=== PATIENT | male | born 1950 | race Caucasian/White ===

== ENCOUNTER 2017-12-29 07:18 | Outpatient (CLI) | payer OTHER ==
--- NOTE | 2017-12-29 10:13 | MRI ---
MRI RIGHT KNEE WITHOUT CONTRAST: Date: 12/29/17 HISTORY: Meniscus tear of the right knee. COMPARISON: None. FINDINGS: Medial Meniscus: There is a full thickness radial tear of the root attachment medial meniscus from the footplate with a 5.0 mm gap. There is 5.0 mm medial gutter extrusion with moderate degenerative signal within the michel dy and posterior horn of the medial meniscus. Lateral Meniscus: Mild degenerative signal at posterior root attachment without a displaced tear. ACL and PCL are intac t, as well as the MCL and LCL. Extensor Mechanism: Quadriceps tendon, patella, and patella tendon are all intact. Cartilage: Patellofemoral compartment: High grade cartilage fissuring with full thickness cartilage fissures in the medial patellar facet. Low grade chondral fraying of the medial trochlea. Medial compartment: High grade cartilage fissuring of the central weightbearing surface at the media l femoral condyle. Lateral compartment: Low grade chondral fraying of the central weightbearing surfaces. Muscles: Muscle signal and bulk normal. Soft Tissues: Nonleaking popliteal cyst. Moderate sized suprapatellar effusion. Mild prepatellar soft tissue swelling. IMPRESSION: 1. Full thickness radial tear root attachment of the medial meniscus from the footprint with 5.0 mm gap. Subsequent 4-5 mm medial gutter extrusion of the medial meniscal body. 2. 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 3. Multifocal Grade III and few foci of Grade IV chondromalacia of the medial patella facet. 4. Nonleaking popliteal cyst. POS: C
== END 2017-12-29 07:19 | disposition home or self-care (01) ==
LOC: BICMRI 07:18
PROVIDERS: ATTEND Orthopaedic Surgery
DX: Z03.89 Encounter for observation for other suspected diseases and conditions ruled out (principal); M71.21 Synovial cyst of popliteal space [Baker], right knee

== ENCOUNTER 2018-02-28 09:51 | Outpatient (CLI) | payer OTHER ==
[2018-02-28 12:07] LABS: #Eosinphils 0.1 thou/uL (0.0-0.7); #Lymphocytes 1.4 thou/uL (1.20-3.40); #Monocytes 0.8 thou/uL (0.11-0.59); #Neutrophils 6.7 thou/uL (1.40-6.50); %Basophils 0.1 % (0.0-1.0); %Eosinophils 1.4 % (0.0-10.0); %Lymphocytes 15.1 % (21.0-51.0); %Monocytes 8.7 % (0.0-10.0); %Neutrophils 74.6 % (42.0-75.0); Hemoglobin 13.5 g/dL (14.0-18.0); Mean Corpuscular HGB CONC 33.9 g/dL (32.0-36.0); Mean Corpuscular Hemoglobin 31.7 pg (27.0-31.0); Mean Corpuscular Volume 93.2 fL (78.0-98.0); Mean Platelet Volume 8.3 fL (7.4-10.4); Platelet Count 260 thou/uL (130-400); RBC Distribution Width 12.5 % (11.5-14.5); Red Blood Cell (RBC) Count 4.25 mill/uL (4.70-6.10); White Blood Cell (WBC) Count 8.9 thou/uL (4.8-10.8)
[2018-02-28 12:15] LABS: INR-International Normal Ratio 1.1; PTT 29.5 SEC (22.9-36.1); Prothrombin Time 14.4 SEC (12.0-14.7)
[2018-02-28 12:33] LABS: Anion Gap 12 mmol/L (10-20); BUN (Urea Nitrogen) 13 mg/dL (8.4-25.7); Calc. Creatinine Clearance 0 mL/min (70-130); Calcium 8.7 mg/dL (7.8-10.44); Carbon Dioxide 22 mmol/L (23-31); Chloride 110 mmol/L (98-107); Estimated GFR-MDRD Greater than 90; Glucose 92 mg/dL (80-115); Potassium 4.3 mmol/L (3.5-5.1); Sodium 140 mmol/L (136-145)
--- NOTE | 2018-03-01 21:59 | EKG ---
Test Reason : Blood Pressure : / mmHG Vent. Rate : 059 BPM Atrial Rate : 059 BPM P-R Int : 190 ms QRS Dur : 082 ms QT Int : 396 ms P-R-T Axes : 049 020 -02 degrees QTc Int : 392 ms Sinus bradycardia with Premature atrial complexes Otherwise normal ECG No previous ECGs available Confirmed by Diana NAVARRO ([id number]) on 03/01/2018 9:59:21 PM Referred By: SUMA Confirmed By:Diana NAVARRO
== END 2018-02-28 09:52 | disposition home or self-care (01) ==
LOC: LABBT 09:51
PROVIDERS: ATTEND Orthopaedic Surgery
DX: Z01.818 Encounter for other preprocedural examination (principal); S83.242A Other tear of medial meniscus, current injury, left knee, initial encounter
CPT/HCPCS: 80048; 85025; 85610; 85730; 93005; 93010

== ENCOUNTER 2018-03-01 05:49 | Day surgery (SDC) | payer OTHER ==
--- NOTE | 2018-02-28 10:02 | HP ---
HISTORY OF PRESENT ILLNESS: The patient is a 67-year-old male, who injured his right knee 5 to 6 months ago in a twisting injury after stepping into a hole. He has had persistent pain, swelling, and popping despite restriction of activities, use of knee brace, and previous cortisone injection. PAST MEDICAL HISTORY: The patient has had previous cardiac stents and takes aspirin and Plavix. He has stopped the Plavix 1 week preoperatively. He has been seen at the [facility] and cleared for surgery. He is otherwise in good health. Also, he has history of hypertension. ALLERGIES: HE HAS NO KNOWN ALLERGIES. FAMILY HISTORY: Otherwise, unremarkable. SOCIAL HISTORY: Otherwise, unremarkable. REVIEW OF SYSTEMS: Otherwise, unremarkable. PHYSICAL EXAMINATION: GENERAL: Healthy heavyset male. HEENT: Unremarkable. NECK: Supple. CHEST: Clear. HEART: Regular rate and rhythm. ABDOMEN: Soft and nontender. RECTAL: Deferred. GENITAL: Deferred. EXTREMITIES: Pertinent findings of the right knee; there is puffiness, but no definite effusion. There is tenderness over the medial joint line. Range of motion is 5 to 125 degrees. There is pain with Kathleen maneuver. There is instability. There is a right antalgic gait. Neurovascular exam is intact. There is no pain with range of motion of the right hip. IMAGING STUDIES: X-rays of the right knee taken at [facility] essentially normal. MRI scan of the right knee reveals a full-thickness medial meniscal tear at the root and degenerative changes at the medial compartment of patellofemoral joint. IMPRESSION: Internal derangement of right knee with medial meniscal tear and possible component of degenerative joint disease. PLAN: Arthroscopy of right knee with partial medial meniscectomy and/or debridement and shaving. The nature of the surgery and length of recovery and potential complications such as infection, loss of motion, incomplete relief, thromboembolic phenomenon, neurovascular injury, post traumatic degenerative arthritis, recurrent tear, need for additional treatment with orthopedic surgery have been discussed in detail. Job ID: [id number]
[2018-02-28 10:17] VITALS: BMI 34.8
[2018-03-01] MEDS ORDERED: Fentanyl 100 MCG/2 ML VIAL ONE (06:38)
[2018-03-01] MEDS ORDERED: Bupivacaine HCl 0.5%/Epinephrine 1:200,000/PF 30 ml Vial ONE (06:43)
[2018-03-01] MEDS ORDERED: CEFAZOLIN 2 GM/50 ML BAG ONE (07:16)
[2018-03-01] MEDS ORDERED: Morphine 4 MG/ML VIAL ONE (09:26)
[2018-03-01] MEDS ORDERED: HYDROcodone/Acetaminophen 5/325 mg Tablet ONE (10:17)
[2018-03-01] MEDS ORDERED: Lidocaine 1% PF 5 ML VIAL ONE (16:56)
[2018-03-01] MEDS ORDERED: Ondansetron PF 4 MG/2 ML Vial ONE (16:56)
[2018-03-01] MEDS ORDERED: Dexamethasone 20 MG/5 ML VIAL ONE (16:56)
[2018-03-01] MEDS ORDERED: PROPOFOL 200 MG/20 ML VIAL ONE (16:56)
[2018-03-01] MEDS ORDERED: ePHEDrine/0.9% NaCl/PF SYRINGE 50 mg/10 ml ONE (16:56)
--- NOTE | 2018-03-03 07:44 | OP ---
DATE OF PROCEDURE: 03/01/2018 ANESTHESIA: General. PREOPERATIVE DIAGNOSES: Medial meniscus tear and degenerative joint disease, right knee. POSTOPERATIVE DIAGNOSES: Medial meniscus tear and degenerative joint disease, right knee. PROCEDURES PERFORMED: Arthroscopy of right knee with partial medial meniscectomy and shaving of medial femoral condyle and patella. OPERATIVE FINDINGS: Examination under anesthesia revealed the need to be stable. At arthroscopy there was grade 2 and grade 3 changes in central portion of the patella with fibrillated cartilage, but no evidence of exposed bone. There were grade 2 and grade 3 changes in the weightbearing surface of the medial femoral condyle, but no evidence of exposed bone. There was some mild degeneration of the body of the medial meniscus, but no definite tears. There was a small tear at the root of the meniscus primarily on the undersurface, which was relatively small and was not unstable. ACL was intact and there are mild degenerative changes of the lateral compartment and some mild fraying of the free margin of the lateral meniscus, but the bulk of meniscus was intact and this was left alone. DESCRIPTION OF PROCEDURE: After satisfactory anesthesia was induced in supine position, the patient was placed on leg schulte and prepped and draped in a routine manner. The right leg was elevated and exsanguinated with an Esmarch bandage with tourniquet inflated to 300 mmHg. Zoey arthroscope was introduced into the standard anterolateral portal and probed through the anteromedial portal and Inflow and outflow accomplished using a Mindflash arthroscopy pump. Arthroscopy was carried out and the above findings were noted. All findings were documented with the video printer and hard copies were made. Medial femoral condyle was debrided with a motorized shaver. Medial meniscal root tear was debrided with a motorized shaver. The patellar surface was debrided with a motorized shaver. The scope was then introduced into the anteromedial portal. All compartments were visualized and no additional pathology found. The knee was copiously irrigated through the scope and all instruments were then withdrawn. A 20 mL of 0.5% Marcaine with epinephrine was instilled into the knee joint and additional 10 mL was injected about the portal sites. Portal sites were closed with 3-0 nylon and a sterile bulky compressive dressing was applied. The tourniquet was deflated for 30 minutes. Foot promptly pinked up, and the patient was awakened and taken to the recovery room in stable condition. There were no apparent intraoperative complications. Estimated blood loss was negligible. The patient will be discharged home in satisfactory condition with some ice and elevation. Given written care instructions and starting home exercise program with Physical Therapy Department and use of walker or crutches. He was given prescription for Brady 7.5 for pains, 40 tablets. He will be rechecked in my office in 10 to 14 days, or sooner if there are any problems prior to that time. Job ID: [id number] MTDD
== END 2018-03-01 11:41 | disposition home or self-care (01) ==
LOC: SDC 05:49
PROVIDERS: ATTEND Orthopaedic Surgery
PROC: 0SBC4ZZ Excision of Right Knee Joint, Percutaneous Endoscopic Approach (ICD-10-PCS; principal; 2018-03-01)
DX: S83.241A Other tear of medial meniscus, current injury, right knee, initial encounter (principal); M17.11 Unilateral primary osteoarthritis, right knee; I10 Essential (primary) hypertension; Z79.02 Long term (current) use of antithrombotics/antiplatelets; Z79.82 Long term (current) use of aspirin; Z79.899 Other long term (current) drug therapy; Z91.041 Radiographic dye allergy status; Z95.5 Presence of coronary angioplasty implant and graft; W18.42XA Slipping, tripping and stumbling without falling due to stepping into hole or opening, initial encounter
CPT/HCPCS: 96374; G8978-GP-CI; G8979-GP-CI; G8980-GP-CI; J0670; J1100; J2001; J2270; J2405; J2704; J3010

== ENCOUNTER 2018-10-23 08:55 | Outpatient (CLI) | payer OTHER ==
--- NOTE | 2018-10-23 11:40 | MRI ---
MRI LUMBAR SPINE WITHOUT CONTRAST: Date: 10/23/18 HISTORY: 68-year-old male with low back pain radiating down bilateral legs. Intervertebral disc degeneration, lumbar. FINDINGS: The vertebral body heights and marrow signal are maintained. Multilevel disc desiccation is seen. Ost eophyte formation is noted as well. There are bilateral facet hypertrophic changes at multiple levels in the lumbar spine. Bulging discs are noted at multiple levels. These result in moderate central ca nal stenosis at L3-4 level. Ligamentum flavum and hypertrophic changes are most prominent at L3-4 lev el. There is mild left-sided lateral recess stenosis at L4-5 level. The paraspinal musculature is nor mal. Incidental note is made of left renal cysts. No significant neural foraminal stenosis is seen. IMPRESSION: Lumbar spondylosis with stenotic changes as described above. POS: [facility]
== END 2018-10-23 08:56 | disposition home or self-care (01) ==
LOC: BICMRI 08:55
DX: M51.36 Other intervertebral disc degeneration, lumbar region (principal); M47.816 Spondylosis without myelopathy or radiculopathy, lumbar region
CPT/HCPCS: 72148

== ENCOUNTER 2019-01-11 06:38 | Outpatient (CLI) | payer OTHER ==
--- NOTE | 2019-01-11 07:43 | ULT ---
BILATERAL CAROTID DUPLEX ULTRASOUND: HISTORY: Atherosclerotic vascular disease. Carotid stenosis. Right endarterectomy. TECHNIQUE: Grayscale, color-flow and spectral Doppler ultrasound imaging of the extracranial carotid artery syst ems was performed bilaterally. FINDINGS: There is plaque formation on both sides. The peak systolic velocity in the right ICA measures 91 cm/s with an end-diastolic velocity of 13 cm/ s and a systolic ratio of 1.33. The peak systolic velocity in the left ICA measures 140 cm/s with an end-diastolic velocity of 52 cm/s and a systolic ratio of 1.54. Flow in both vertebral arteries remains antegrade. IMPRESSION: Moderate (50-69%) stenosis of the left ICA
== END 2019-01-11 06:39 | disposition home or self-care (01) ==
LOC: ULT 06:38
DX: I65.23 Occlusion and stenosis of bilateral carotid arteries (principal)
CPT/HCPCS: 93880

== ENCOUNTER 2019-08-29 08:56 | Outpatient (CLI) | payer OTHER ==
--- NOTE | 2019-08-29 11:42 | MRI ---
MRI CERVICAL SPINE WITHOUT CONTRAST: Date: 08/29/2019 INDICATION: Cervical radiculopathy. FINDINGS: Cervical vertebra maintain normal height and alignment. Disc spaces are preserved. Degenerative carrillo es are noted at C5-6 and C6-7 with anterior osteophytes. Degenerative disc and end plate changes at C 6-7 with mild loss of disc space at this level. Vertebral body signal is otherwise normally preserved. No significant disc bulge or spondylosis at C2-3. At C3-4, there is minimal disc bulge and spondylosis. Minimal effacement of the anterior subarachnoid space. No central canal or foraminal stenosis. C4-5: Mild disc bulge centrally effaces the anterior subarachnoid space. No cord impingement or cent ral canal stenosis. No foraminal stenosis. C5-6: Posterior disc bulge and spondylosis impinge on and mildly flatten the anterior cord. No evide nce of significant foraminal stenosis. C6-7: Posterior disc bulge and spondylytic change abut the anterior cord. No foraminal stenosis. Cervical cord signal is preserved. IMPRESSION: Posterior disc bulge and spondylosis noted at C5-6 and C6-7. Mild cord impingement at both of these l evels and degenerative disc changes at these levels as described above. POS: AGW
== END 2019-08-29 08:57 | disposition home or self-care (01) ==
LOC: BICMRI 08:56
PROVIDERS: ATTEND Specialist
DX: M47.22 Other spondylosis with radiculopathy, cervical region (principal)
CPT/HCPCS: 72141

== ENCOUNTER 2019-11-30 06:59 | Outpatient (CLI) | payer OTHER ==
[2019-11-30 10:50] LABS: Hemoglobin 14.9 g/dL (14.0-18.0); Mean Corpuscular Hemoglobin 30.9 pg (27.0-31.0); Mean Corpuscular Volume 93.6 fL (78.0-98.0); Mean Platelet Volume 8.4 fL (7.4-10.4); Platelet Count 295 thou/uL (130-400); RBC Distribution Width 12.7 % (11.5-14.5); Red Blood Cell (RBC) Count 4.83 mill/uL (4.70-6.10); White Blood Cell (WBC) Count 7.2 thou/uL (4.8-10.8)
[2019-11-30 11:08] LABS: Anion Gap 13 mmol/L (10-20); BUN (Urea Nitrogen) 19 mg/dL (8.4-25.7); Calc. Creatinine Clearance 0 mL/min (70-130); Calcium 9.3 mg/dL (7.8-10.44); Carbon Dioxide 26 mmol/L (23-31); Chloride 102 mmol/L (98-107); Estimated GFR-MDRD 80; Glucose 106 mg/dL (80-115); Potassium 4.3 mmol/L (3.5-5.1); Sodium 137 mmol/L (136-145)
[2019-11-30 12:14] LABS: INR-International Normal Ratio 0.9; Prothrombin Time 12.2 sec (12.0-14.7)
[2019-11-30 12:15] LABS: PTT 32.6 sec (22.9-36.1)
[2019-11-30 16:40] LABS: SARS-CoV-2 MS2 Positive; SARS-CoV-2 N Gene Negative; SARS-CoV-2 S Gene Negative; SARS-CoV-2 by NAA Not Detected (NotDetected); SARS-CoV-2 orf1ab Negative
--- NOTE | 2019-12-05 20:12 | EKG ---
Test Reason : Blood Pressure : / mmHG Vent. Rate : 076 BPM Atrial Rate : 076 BPM P-R Int : 174 ms QRS Dur : 082 ms QT Int : 370 ms P-R-T Axes : 074 028 042 degrees QTc Int : 416 ms Normal sinus rhythm Normal ECG No previous ECGs available Confirmed by PHIL COURTNEY, DR. Coon ([id number]) on 12/05/2019 8:11:51 PM Referred By: FRIEDA Confirmed By:DR. Shaggy VILLARREAL MD
== END 2019-11-30 07:00 | disposition home or self-care (01) ==
LOC: LABBT 06:59
PROVIDERS: ATTEND Surgery
DX: Z01.818 Encounter for other preprocedural examination (principal); Z20.828 Contact with and (suspected) exposure to other viral communicable diseases; M48.02 Spinal stenosis, cervical region; M50.10 Cervical disc disorder with radiculopathy, unspecified cervical region
CPT/HCPCS: 80048; 85027; 85610; 85730; 87635; 93005; 93010; U0003

== ENCOUNTER 2019-12-04 08:00 | Day surgery (SDC) | payer OTHER ==
[2019-11-30 10:33] VITALS: BMI 32.8
[2019-12-04] MEDS ORDERED: EPHEDRINE 25 MG/5 ML SYRINGE ONE (09:51)
[2019-12-04] MEDS ORDERED: PROPOFOL 200 MG/20 ML VIAL ONE (09:51)
[2019-12-04] MEDS ORDERED: Lidocaine 1% PF 5 ML VIAL ONE (09:51)
[2019-12-04] MEDS ORDERED: Dexamethasone 20 MG/5 ML VIAL ONE (09:51)
[2019-12-04] MEDS ORDERED: Ondansetron PF 4 MG/2 ML Vial ONE (09:51)
[2019-12-04] MEDS ORDERED: Rocuronium Bromide 10 MG/ML (10ML VIAL) ONE (09:51)
[2019-12-04] MEDS ORDERED: Thrombin 5000 UNITS/5 ML VIAL ONE (10:14)
[2019-12-04] MEDS ORDERED: Fentanyl 100 MCG/2 ML VIAL ONE ×4 (10:20→13:44)
[2019-12-04] MEDS ORDERED: Dexmedetomidine 200 MCG/2 ML VIAL ONE (10:21)
[2019-12-04] MEDS ORDERED: SUGAMMADEX SODIUM 200 MG/2 ML VIAL ONE (12:28)
[2019-12-04] MEDS ORDERED: Bisacodyl 10 MG SUPP PR PRN (13:01)
[2019-12-04] MEDS ORDERED: tiZANidine HCl 4 MG TAB PO PRN (13:01)
[2019-12-04] MEDS ORDERED: HYDROcodone/Acetaminophen 7.5/325 mg Tablet PO PRN (13:01)
[2019-12-04] MEDS ORDERED: diphenhydrAMINE 25 MG CAP PO PRN (13:01)
[2019-12-04] MEDS ORDERED: Mag-Al 1200 mg/1200 mg/30 ML UDCUP PO PRN (13:01)
[2019-12-04] MEDS ORDERED: Acetaminophen 325 MG TAB PO PRN (13:01)
[2019-12-04] MEDS ORDERED: Milk Of Magnesia 30 ML UDCUP PO PRN (13:01)
[2019-12-04] MEDS ORDERED: Morphine 2 MG/ML VIAL SLOW IVP PRN (13:01)
[2019-12-04] MEDS ORDERED: Acetaminophen/Codeine 30-300mg Tablet PO PRN (13:01)
[2019-12-04] MEDS ORDERED: Ondansetron PF 4 MG/2 ML Vial IVP PRN (13:01)
[2019-12-04] MEDS ORDERED: Promethazine HCl 25 MG/ML VIAL SLOW IVP PRN (13:37)
[2019-12-04] MEDS ORDERED: Ondansetron HCl/PF 4 MG/2 ML Vial IVP PRN (13:37)
[2019-12-04] MEDS ORDERED: Promethazine HCl 25 MG/ML VIAL IM PRN (13:37)
[2019-12-04] MEDS ORDERED: Cepastat Lozenges 1 LOZ PO PRN (13:47)
[2019-12-04] MEDS ORDERED: Chloraseptic Spray 180 ml Bottle PO PRN (13:48)
[2019-12-04] MEDS: Ketorolac Tromethamine 30 MG/ML VIAL IVP SCH ×2 (18:08→23:33)
[2019-12-04] MEDS: CEFAZOLIN 2 GM in Premix Bag 1 BAG IVPB SCH (18:08)
[2019-12-04] MEDS: Sodium Chloride 0.9% 1,000 ML IV SCH (18:09)
[2019-12-04] MEDS: traMADol HCl 50 MG TAB PO PRN ×2 (18:10→23:32)
[2019-12-05] MEDS: CEFAZOLIN 2 GM in Premix Bag 1 BAG IVPB SCH ×2 (02:21→08:54)
[2019-12-05] MEDS: Sodium Chloride 0.9% 1,000 ML IV SCH (02:24)
[2019-12-05] MEDS: Ketorolac Tromethamine 30 MG/ML VIAL IVP SCH ×2 (05:20→11:30)
[2019-12-05] MEDS ORDERED: Losartan/Hydrochlorothiazide 100 mg/25 mg Tablet PO SCH (09:00)
[2019-12-05] MEDS ORDERED: Amlodipine 10 MG TAB PO SCH (09:00)
--- NOTE | 2019-12-05 09:30 | PRG ---
DATE OF SERVICE: 12/05/2019 Mr. Colón is doing very well, postoperative day one with resolution of his arm and leg pain and even improvement in his hand intrinsics. I am very pleased with how he is doing. I went over do's and don'ts in the postoperative period. He will be discharged. Job ID: [id number]
[2019-12-05 11:26] VITALS: BP 122/68; TEMP 97.9
--- NOTE | 2019-12-05 11:27 | OP ---
DATE OF PROCEDURE: 12/04/2019 RETAIL AIDE: KIA Us PREPROCEDURE DIAGNOSIS: Multilevel cervical stenosis with neck, arm and leg pain. POSTPROCEDURE DIAGNOSIS: Multilevel cervical stenosis with neck, arm and leg pain. PROCEDURE PERFORMED: 1. C5-C6, C6-C7 diskectomies for decompression of spinal cord and nerve roots with placement of interbody spacer, separate from plate, C5-C6, C6-C7, packed with local bone autograft obtained with same incision, allograft for arthrodesis. 2. Anterior cervical plate and screw fixation C5, C6, C7. 3. Use of operative microscope for microdissection. DESCRIPTION OF PROCEDURE: After informed consent was obtained from the patient, the patient brought to the OR. Proper patient, pause, and identification were carried out. He was placed under excellent endotracheal anesthesia and positioned supine on the OR table. All appropriate points were padded. We identified the right anterior oblique lucy to allow for approach to the C5, C6, C7 segments. This region was sterilely cleansed prepared and draped. Proper patient, pause, and identification were carried out. The area was then sterilely cleansed, prepared, and draped. Proper patient, pause, and identification were carried out. We then made a small incision. We proceeded lateral to the tracheoesophageal bundle medial to the right carotid sheath. We identified the prevertebral layer of deep cervical fascia and this was dissected. Retractors were placed. Localization confirmed our area of interest. We then performed distraction at C5-C6 and diskectomy was performed at that segment. We utilized microscope for microdissection. Once we decompressed the spinal cord and the C6 nerve roots the endplates were prepared and interbody spacer packed with local bone autograft obtained with same incision. Allograft was placed to initiate arthrodesis. We then released the distraction and focus at the C6-C7 segment and a diskectomy was performed at C6-C7 which allowed for decompression of the spinal cord nerve roots. The endplates were then prepared and interbody spacer was then placed at C5, C6, C7 and we obtained excellent decompression of spinal cord and C7 nerve roots. The endplates were prepared. Interbody spacer packed with local bone autograft obtained with same incision. Allograft was then placed and copious irrigation then occurred throughout maximizing hemostasis. The microscope was then removed and anterior cervical plate and screw fixation C5-C6, C6-C7 then occurred with final tightening. Copious irrigation occurred throughout maximizing hemostasis. The wound was then closed in anatomic layers following placement of a drain. The patient monitored for anesthesia. Job ID: [id number]
== END 2019-12-05 12:20 | disposition home or self-care (01) ==
LOC: SDC 08:00 → SURG B 13:00 → SDC 12-05 12:20
PROVIDERS: ATTEND Surgery
PROC: 0RG20A0 Fusion of 2 or more Cervical Vertebral Joints with Interbody Fusion Device, Anterior Approach, Anterior Column, Open Approach (ICD-10-PCS; principal; 2019-12-04)
PROC: 0RT30ZZ Resection of Cervical Vertebral Disc, Open Approach (ICD-10-PCS; principal; 2019-12-04)
PROC: 0RG2070 Fusion of 2 or more Cervical Vertebral Joints with Autologous Tissue Substitute, Anterior Approach, Anterior Column, Open Approach (ICD-10-PCS; principal; 2019-12-04)
DX: M48.02 Spinal stenosis, cervical region (principal); M50.10 Cervical disc disorder with radiculopathy, unspecified cervical region; M48.061 Spinal stenosis, lumbar region without neurogenic claudication; M54.16 Radiculopathy, lumbar region; Z79.82 Long term (current) use of aspirin; Z79.899 Other long term (current) drug therapy; Z95.5 Presence of coronary angioplasty implant and graft
CPT/HCPCS: 76000; C1713; C1776; J0690; J1100; J1885; J2405; J2704; J3010

== ENCOUNTER 2020-01-14 10:41 | Outpatient (CLI) | payer OTHER ==
--- NOTE | 2020-01-14 11:51 | RAD ---
CERVICAL SPINE 4 VIEWS: Date: 01/14/2020 HISTORY: Cervical radiculopathy. FINDINGS: Postop changes are noted. Anterior plate and screws transfix C5, C6, and C7 with interbody implants. The vertebral bodies maintain height and alignment. The other disc spaces are preserved. Very mild de generative change. IMPRESSION: Postop anterior fusion procedure with anterior plate and screws at C5, C6, and C7. Alignment is prese rved. POS: AH
== END 2020-01-14 10:42 | disposition home or self-care (01) ==
LOC: BICRAD 10:41
PROVIDERS: ATTEND Surgery
DX: M50.10 Cervical disc disorder with radiculopathy, unspecified cervical region (principal); M48.02 Spinal stenosis, cervical region; Z98.1 Arthrodesis status
CPT/HCPCS: 72040

== ENCOUNTER 2020-08-21 11:00 | Inpatient (IN) | payer OTHER ==
[2020-09-25 15:32] VITALS: BMI 32.8
[2020-09-30] MEDS ORDERED: Tranexamic Acid 1,000 MG/10 ML VIAL ONE (05:59)
[2020-09-30] MEDS ORDERED: Sodium Chloride 0.9% 100 ML ONE (06:00)
[2020-09-30] MEDS ORDERED: Vancomycin 1.5 GRAM/300 ML BAG 1.5 GM in Premix Bag 1 BAG IVPB SCH (06:15)
[2020-09-30] MEDS ORDERED: Fentanyl 100 MCG/2 ML VIAL ONE ×2 (06:26→07:06)
[2020-09-30] MEDS ORDERED: Midazolam HCl 2 mg/2 ml Vial ONE (06:26)
[2020-09-30] MEDS ORDERED: Zolpidem Tartrate 5 MG TAB PO PRN ×2 (07:00→07:06)
[2020-09-30] MEDS ORDERED: HYDROcodone/Acetaminophen 10/325 mg Tablet PO PRN (07:00)
[2020-09-30] MEDS ORDERED: Ondansetron PF 4 MG/2 ML Vial IVP PRN ×2 (07:00→07:06)
[2020-09-30] MEDS ORDERED: traMADol HCl 50 MG TAB PO PRN ×2 (07:00)
[2020-09-30] MEDS ORDERED: Ropivacaine 0.2% 550 ML 550 ML NERVE BLCK SCH (07:00)
[2020-09-30] MEDS ORDERED: Promethazine HCl 25 MG/ML VIAL IM PRN ×3 (07:00→09:09)
[2020-09-30] MEDS ORDERED: Fentanyl 100 MCG/2 ML VIAL SLOW IVP PRN (07:01)
[2020-09-30] MEDS ORDERED: Acetaminophen 325 MG TAB PO PRN (07:06)
[2020-09-30] MEDS ORDERED: diphenhydrAMINE 25 MG CAP PO PRN (07:06)
[2020-09-30] MEDS ORDERED: PROPOFOL 200 MG/20 ML VIAL ONE (07:12)
[2020-09-30] MEDS ORDERED: Ropivacaine 2% HCl/PF (20 MG/10 ML VIAL) ONE (07:12)
[2020-09-30] MEDS ORDERED: Bupivacaine HCl 0.5%/Epinephrine 1:200,000/PF 30 ml Vial ONE (07:12)
[2020-09-30] MEDS ORDERED: Ondansetron PF 4 MG/2 ML Vial ONE ×2 (07:12→09:15)
[2020-09-30] MEDS ORDERED: Dexamethasone 20 MG/5 ML VIAL ONE (07:12)
[2020-09-30] MEDS ORDERED: Lidocaine 1% PF 5 ML VIAL ONE (07:12)
[2020-09-30] MEDS ORDERED: ePHEDrine Sulfate 50 MG/10 ML VIAL ONE (07:12)
[2020-09-30] MEDS ORDERED: PACU-Morphine 4MG/ML VIAL SLOW IVP PRN (09:09)
[2020-09-30] MEDS ORDERED: Promethazine HCl 25 MG/ML VIAL IVPB PRN (09:09)
[2020-09-30] MEDS ORDERED: Ondansetron HCl/PF 4 MG/2 ML Vial IVP PRN (09:09)
[2020-09-30] MEDS ORDERED: HYDROmorphone 2 MG/ML VIAL SLOW IVP PRN (09:09)
[2020-09-30] MEDS ORDERED: Promethazine HCl 25 MG/ML VIAL ONE (09:56)
[2020-09-30] MEDS: Sodium Chloride 0.9% 1,000 ML IV SCH ×2 (10:56→17:20)
[2020-09-30] MEDS: Amlodipine 10 MG TAB PO SCH (10:57)
[2020-09-30] MEDS: Aspirin 81 mg Enteric Coated Tablet PO SCH ×2 (10:57→20:33)
[2020-09-30] MEDS: Losartan/Hydrochlorothiazide 100 mg/25 mg Tablet PO SCH (10:57)
[2020-09-30] MEDS: Ketorolac Tromethamine 30 MG/ML VIAL IVP SCH ×2 (11:39→17:21)
[2020-09-30] MEDS: CEFAZOLIN 2 GM in Premix Bag 1 BAG IVPB SCH ×2 (13:04→22:07)
[2020-10-01] MEDS: Ketorolac Tromethamine 30 MG/ML VIAL IVP SCH ×5 (01:21→23:35)
[2020-10-01] MEDS: Sodium Chloride 0.9% 1,000 ML IV SCH ×3 (03:31→23:33)
[2020-10-01 05:56] LABS: Hemoglobin 12.4 g/dL (14.0-18.0); Mean Corpuscular HGB CONC 33.4 g/dL (32.0-36.0); Mean Corpuscular Hemoglobin 31.2 pg (27.0-31.0); Mean Corpuscular Volume 93.3 fL (78.0-98.0); Platelet Count 257 thou/uL (130-400); RBC Distribution Width 12.5 % (11.5-14.5); Red Blood Cell (RBC) Count 3.97 mill/uL (4.70-6.10); White Blood Cell (WBC) Count 13.9 thou/uL (4.8-10.8)
[2020-10-01] MEDS: Aspirin 81 mg Enteric Coated Tablet PO SCH ×2 (10:30→20:50)
[2020-10-01] MEDS: Multivitamin W/ Minerals 1 TAB PO SCH (10:30)
[2020-10-01] MEDS: Losartan/Hydrochlorothiazide 100 mg/25 mg Tablet PO SCH (10:30)
[2020-10-01] MEDS: Senokot S 8.6-50 MG TAB PO SCH ×2 (10:30→20:50)
[2020-10-01] MEDS: Amlodipine 10 MG TAB PO SCH (10:30)
[2020-10-01] MEDS: Ferrous Gluconate 324 MG TAB PO SCH ×2 (10:31→17:27)
[2020-10-01] MEDS: HYDROcodone/Acetaminophen 10/325 mg Tablet PO PRN ×3 (12:41→22:53)
[2020-10-02] MEDS: Ketorolac Tromethamine 30 MG/ML VIAL IVP SCH (06:07)
[2020-10-02] MEDS: HYDROcodone/Acetaminophen 10/325 mg Tablet PO PRN ×2 (06:12→10:48)
[2020-10-02] MEDS: Ferrous Gluconate 324 MG TAB PO SCH (09:09)
[2020-10-02] MEDS: Multivitamin W/ Minerals 1 TAB PO SCH (09:09)
[2020-10-02] MEDS: Losartan/Hydrochlorothiazide 100 mg/25 mg Tablet PO SCH (09:14)
[2020-10-02] MEDS: Aspirin 81 mg Enteric Coated Tablet PO SCH (09:14)
[2020-10-02] MEDS: Senokot S 8.6-50 MG TAB PO SCH (09:15)
[2020-10-02] MEDS: Amlodipine 10 MG TAB PO SCH (09:15)
[2020-10-02] MEDS: Sodium Chloride 0.9% 1,000 ML IV SCH (09:20)
[2020-10-02 11:56] VITALS: BP 130/67; TEMP 97.9
== END 2020-10-02 11:50 | disposition home or self-care (01) | DRG 470 ==
LOC: SURG A 09-30 05:38 → SJJU 09-30 10:30 → EDSTATUS 09-30 11:00
PROVIDERS: ADMIT Orthopaedic Surgery; ATTEND Orthopaedic Surgery
PROC: 0SRD0J9 Replacement of Left Knee Joint with Synthetic Substitute, Cemented, Open Approach (ICD-10-PCS; principal; 2020-09-30)
PROC: 8E0YXBZ Computer Assisted Procedure of Lower Extremity (ICD-10-PCS; 2020-09-30)
DX: M17.12 Unilateral primary osteoarthritis, left knee (principal); Z20.822 Contact with and (suspected) exposure to COVID-19; I10 Essential (primary) hypertension; I25.10 Atherosclerotic heart disease of native coronary artery without angina pectoris; E66.9 Obesity, unspecified; Z79.899 Other long term (current) drug therapy; Z68.32 Body mass index [BMI] 32.0-32.9, adult
CPT/HCPCS: 36415; 85027; A4306; C1713; C1776; J0690; J1100; J1885; J2250; J2405; J2550; J2704; J2795; J3010; J3490

== ENCOUNTER 2020-09-25 10:42 | Outpatient (CLI) | payer OTHER ==
[2020-09-25 14:27] LABS: #Eosinphils 0.1 10x3/uL (0.0-0.5); #Monocytes 0.6 10x3/uL (0.0-1.1); #Neutrophils 5.5 10x3/uL (1.5-8.4); %Basophils 0.4 % (0.0-2.0); %Eosinophils 1.3 % (0.0-6.0); %Lymphocytes 20.9 % (18.0-47.0); %Monocytes 8.1 % (0.0-10.0); %Neutrophils 68.9 % (40.0-75.0); Mean Corpuscular HGB CONC 32.3 g/dL (32.0-36.0); Mean Corpuscular Hemoglobin 29.6 pg (27.0-33.0); Mean Corpuscular Volume 91.5 fl (81.2-95.1); Mean Platelet Volume 10.6 fl (7.4-10.4); Platelet Count 305 10x3/uL (150-450); RBC Distribution Width 12.9 % (11.5-14.5); Red Blood Cell (RBC) Count 4.73 10x6/uL (4.32-5.72); White Blood Cell (WBC) Count 7.9 10x3/uL (3.5-10.5)
[2020-09-25 14:30] LABS: Prothrombin Time 10.4 sec (9.5-12.1)
[2020-09-25 14:37] LABS: Bilirubin Neg (Negative); Blood, Urine Negative (Negative); Clarity Clear (Clear); Glucose, Urine (Dipstick) Normal (Negative); Ketone, Urine Negative (Negative); Leukocyte Negative (Negative); Nitrite Negative (Negative); Protein, Urine (Dipstick) Negative (Neg-Trace); Urobilinogen Normal mg/dL (Less than 2); pH, Urine 6.5 (5.0-9.0)
[2020-09-25 14:46] LABS: Anion Gap 15 mmol/L (10-20); BUN (Urea Nitrogen) 17 mg/dL (8.4-25.7); Calc. Creatinine Clearance 0 mL/min (70-130); Calcium 9.6 mg/dL (7.8-10.44); Carbon Dioxide 25 mmol/L (23-31); Chloride 103 mmol/L (98-107); Glucose 113 mg/dL (80-115); Sodium 139 mmol/L (136-145)
[2020-09-25 14:54] LABS: Bacteria/HPF None Seen HPF (None Seen); RBC/HPF 0-3 HPF (0-3); Squamous Epithelial 0-3 HPF (0-3); WBC/HPF 0-3 HPF (0-3)
[2020-09-25 22:24] LABS: SARS-CoV-2 PCR by NAA Not Detected (NotDetected)
== END 2020-09-25 10:43 | disposition home or self-care (01) ==
LOC: LABBT 10:42
PROVIDERS: ATTEND Orthopaedic Surgery
DX: Z01.818 Encounter for other preprocedural examination (principal); M17.12 Unilateral primary osteoarthritis, left knee; Z20.822 Contact with and (suspected) exposure to COVID-19
CPT/HCPCS: 80048; 81001; 85025; 85610; 87081; 93005; 93010; U0003; U0005

== ENCOUNTER 2022-03-23 07:48 | Outpatient (CLI) | payer OTHER | END 2022-03-23 07:49 | disposition home or self-care (01) | LOC: TBSIIMAG 07:48 | PROVIDERS: ATTEND Psychiatry & Neurology Neurology | DX: M47.22 Other spondylosis with radiculopathy, cervical region (principal); M47.23 Other spondylosis with radiculopathy, cervicothoracic region; Z98.890 Other specified postprocedural states | CPT/HCPCS: 72141 ==

== ENCOUNTER 2022-04-05 15:04 | Outpatient (CLI) | payer OTHER | END 2022-04-05 15:05 | disposition home or self-care (01) | LOC: BICULT 15:04 | PROVIDERS: ATTEND Orthopaedic Surgery | DX: R22.42 Localized swelling, mass and lump, left lower limb (principal); Z96.652 Presence of left artificial knee joint | CPT/HCPCS: 93923 ==

== ENCOUNTER 2022-05-07 08:44 | Outpatient (CLI) | payer OTHER | END 2022-05-07 08:45 | disposition home or self-care (01) | LOC: TBSIIMAG 08:44 | PROVIDERS: ATTEND Orthopaedic Surgery Hand Surgery | DX: M75.111 Incomplete rotator cuff tear or rupture of right shoulder, not specified as traumatic (principal); M19.011 Primary osteoarthritis, right shoulder; M75.81 Other shoulder lesions, right shoulder ==

== ENCOUNTER 2022-07-21 12:17 | Outpatient (CLI) | payer OTHER | END 2022-07-21 12:18 | disposition home or self-care (01) | LOC: TBSIIMAG 12:17 | PROVIDERS: ATTEND Nurse Practitioner Family | DX: M54.14 Radiculopathy, thoracic region (principal) | CPT/HCPCS: 72146 ==

== ENCOUNTER 2023-03-16 08:30 | Outpatient (CLI) | payer OTHER ==
[2023-03-16 09:21] LABS: #Eosinphils 0.2 10x3/uL (0.0-0.5); #Monocytes 0.6 10x3/uL (0.0-1.1); #Neutrophils 3.9 10x3/uL (1.5-8.4); %Basophils 0.5 % (0.0-2.0); %Eosinophils 2.3 % (0.0-6.0); %Lymphocytes 28.3 % (18.0-47.0); %Monocytes 9.3 % (0.0-10.0); %Neutrophils 59.3 % (40.0-75.0); Hematocrit 43.2 % (38.8-50.0); Hemoglobin 14.5 g/dL (13.5-17.5); Mean Corpuscular HGB CONC 33.6 g/dL (32.0-36.0); Mean Corpuscular Hemoglobin 30.5 pg (27.0-33.0); Mean Corpuscular Volume 90.8 fl (81.2-95.1); Mean Platelet Volume 10.1 fl (7.4-10.4); Platelet Count 303 10x3/uL (150-450); RBC Distribution Width 13.2 % (11.5-14.5); Red Blood Cell (RBC) Count 4.76 10x6/uL (4.32-5.72); White Blood Cell (WBC) Count 6.6 10x3/uL (3.5-10.5)
== END 2023-03-16 08:31 | disposition home or self-care (01) ==
LOC: LABBT 08:30
PROVIDERS: ATTEND Orthopaedic Surgery Hand Surgery
DX: Z01.818 Encounter for other preprocedural examination (principal); G56.01 Carpal tunnel syndrome, right upper limb; G56.21 Lesion of ulnar nerve, right upper limb
CPT/HCPCS: 85025; 93005; 93010

== ENCOUNTER 2023-03-18 05:34 | Day surgery (SDC) | payer OTHER ==
[2023-03-16 08:51] VITALS: BMI 33.5
[2023-03-18] MEDS ORDERED: PROPOFOL 20 ML ONE (06:30)
[2023-03-18] MEDS ORDERED: fentaNYL PF 100 MCG/2 ML SYRINGE ONE (06:30)
[2023-03-18] MEDS ORDERED: Ondansetron PF 4 MG/2 ML Vial ONE (06:32)
[2023-03-18] MEDS ORDERED: Dexamethasone 4 mg/ml Vial ONE (06:32)
[2023-03-18] MEDS ORDERED: Lidocaine 1% PF 5 ML VIAL ONE (06:32)
[2023-03-18] MEDS ORDERED: EPINEPHrine 1 MG/ML VIAL ONE (07:00)
[2023-03-18] MEDS ORDERED: Bupivacaine PF 0.5% 30 ML VIAL ONE ×2 (07:01→07:48)
[2023-03-18] MEDS ORDERED: Sodium Chloride 0.9% 100 ML ONE (07:03)
[2023-03-18] MEDS ORDERED: CEFAZOLIN 2 GM VIAL ONE (07:03)
[2023-03-18] MEDS ORDERED: ePHEDrine Sulfate 50 MG/10 ML VIAL ONE (07:34)
[2023-03-18] MEDS ORDERED: Bacitracin Zinc Ointment 30 gm TUBE ONE (09:12)
[2023-03-18] MEDS ORDERED: HYDROcodone/Acetaminophen 5/325 mg Tablet ONE (13:13)
== END 2023-03-18 14:27 | disposition home or self-care (01) ==
LOC: SDC 05:34
PROVIDERS: ATTEND Orthopaedic Surgery Hand Surgery
PROC: 0LN Tendons, Release (ICD-10-PCS; principal; 2023-03-18)
PROC: 0LN70ZZ Release Right Hand Tendon, Open Approach (ICD-10-PCS; principal; 2023-03-18)
PROC: 01S40ZZ Reposition Ulnar Nerve, Open Approach (ICD-10-PCS; principal; 2023-03-18)
PROC: 01N50ZZ Release Median Nerve, Open Approach (ICD-10-PCS; principal; 2023-03-18)
DX: G56.01 Carpal tunnel syndrome, right upper limb (principal); G56.21 Lesion of ulnar nerve, right upper limb; G56.11 Other lesions of median nerve, right upper limb; I10 Essential (primary) hypertension; E78.5 Hyperlipidemia, unspecified; Z86.73 Personal history of transient ischemic attack (TIA), and cerebral infarction without residual deficits; Z79.82 Long term (current) use of aspirin; Z79.899 Other long term (current) drug therapy
CPT/HCPCS: J0171; J1100; J2405; J2704; J3490; S0020

== ENCOUNTER 2025-03-13 09:36 | Day surgery (SDC) | payer OTHER ==
[2025-03-11 12:21] VITALS: BMI 35.5
[2025-03-13] MEDS ORDERED: Heparin 10,000 UNITS/ 10 ML VIAL ONE (10:54)
[2025-03-13] MEDS ORDERED: Adenosine 6 mg (2 mL) VIAL ONE (10:54)
[2025-03-13] MEDS ORDERED: Lidocaine 1% (PF) 30 ML VIAL ONE (10:54)
[2025-03-13] MEDS ORDERED: Nitroglycerin 50 MG/250 ML BOT 250 ML ONE (10:55)
[2025-03-13 11:14] LABS: Cardiac Risk 3.8 (Less than 4.5); Cholesterol 163.0 mg/dl (< 200 Desired); HDL Cholesterol 43.0 mg/dL (>60 Neg Risk); LDL Cholesterol, Calculated 103.0 mg/dL; Triglycerides 83.0 mg/dL (Less than 150)
== END 2025-03-13 15:34 | disposition home or self-care (01) ==
LOC: CCL 09:36
PROVIDERS: ATTEND Internal Medicine Cardiovascular Disease
DX: I25.10 Atherosclerotic heart disease of native coronary artery without angina pectoris (principal); I10 Essential (primary) hypertension; E78.5 Hyperlipidemia, unspecified; Z86.73 Personal history of transient ischemic attack (TIA), and cerebral infarction without residual deficits; Z79.899 Other long term (current) drug therapy; Z79.82 Long term (current) use of aspirin; Z95.818 Presence of other cardiac implants and grafts; Z98.890 Other specified postprocedural states
CPT/HCPCS: 80061; 93458; 99152; 99153; C1769; C1894; J0153; J1644; J2003; J2250; J3010